=== PATIENT | female | born 1980 | race Hispanic/Latino ===

== ENCOUNTER 2018-11-28 23:28 | Emergency (ER) | payer SELFPAY ==
--- OUTSIDE RECORDS SUMMARY | 2018-11-28 23:31 | XMS REPORT ---
:1980 [facility] Address [address] [place] [address] Care Team Providers Name Role Phone Unavailable Unavailable Unavailable Payers Payer Name Policy Type Policy Number Effective Date Expiration Date Problems This patient has no known problems. Allergies, Adverse Reactions, Alerts Allergy Name Allergy Status Severity Reaction(s) Onset Inactive Treating Comments Type Date Date Clinician diphenhydramine DA Active WA 8-07 00:00: 00 lidocaine DA Active MO 3-14 00:00: 00 ketorolac DA Active SV 3-14 00:00: 00 Medications This patient has no known medications. Results Test Description Test Time Test Comments Text Results Atomic Results Result Comments UA RFLX MICR CULT IF INDICATED 2018-11-11 02:38:00 Test Item Value Reference Range Comments UA COLOR (test code=COLU) YELLOW YELLOW UA APPEARANCE (test code=APPU) CLEAR CLEAR UA GLUCOSE DIPSTICK (test code=DGLUU) NEGATIVE NEGATIVE UA BILIRUBIN DIPSTICK (test code=BILU) NEGATIVE NEGATIVE UA KETONE DIPSTICK (test code=KETU) NEGATIVE NEGATIVE UA SPECIFIC GRAVITY (test code=SGU) 1.020 1.000-1.030 UA BLOOD DIPSTICK (test code=RIRI) NEGATIVE NEGATIVE UA PH DIPSTICK (test code=JAYDE) 6.5 5.0-8.5 UA PROTEIN DIPSTICK (test code=PROU) NEGATIVE NEGATIVE UA UROBILINIOGEN DIPSTICK (test code=URO) 0.2 EU/DL <=1.0 EU/DL UA NITRITE DIPSTICK (test code=NAYELI) NEGATIVE NEGATIVE UA LEUKOCYTE ESTERASE DIPSTICK (test code=LEUU) NEGATIVE NEGATIVE UA WBC (test code=WBCU) 0-2 0-5 UA CULTURE NEEDED? (test code=UACULT) Criteria not met SOURCE: URINESPECIMEN DESCRIPTION: CMCIndication for culture: Suprapubic PainUA [id number] 02:38:00 Test Item Value Reference Range Comments UA RBC (test code=RBCU) 0-2 0-5 SOURCE: URINESPECIMEN DESCRIPTION: CMCIndication for culture: Suprapubic PainUA RFLX MICR CULT IF [id number] 02:37:00 Test Item Value Reference Range Comments UA COLOR (test code=COLU) YELLOW YELLOW UA APPEARANCE (test code=APPU) CLEAR CLEAR UA GLUCOSE DIPSTICK (test code=DGLUU) NEGATIVE NEGATIVE UA BILIRUBIN DIPSTICK (test code=BILU) NEGATIVE NEGATIVE UA KETONE DIPSTICK (test code=KETU) NEGATIVE NEGATIVE UA SPECIFIC GRAVITY (test code=SGU) 1.020 1.000-1.030 UA BLOOD DIPSTICK (test code=RIRI) NEGATIVE NEGATIVE UA PH DIPSTICK (test code=JAYDE) 6.5 5.0-8.5 UA PROTEIN DIPSTICK (test code=PROU) NEGATIVE NEGATIVE UA UROBILINIOGEN DIPSTICK (test code=URO) 0.2 EU/DL <=1.0 EU/DL UA NITRITE DIPSTICK (test code=NAYELI) NEGATIVE NEGATIVE UA LEUKOCYTE ESTERASE DIPSTICK (test code=LEUU) NEGATIVE NEGATIVE UA WBC (test code=WBCU) 0-2 0-5 UA CULTURE NEEDED? (test code=UACULT) SOURCE: URINESPECIMEN DESCRIPTION: CMCIndication for culture: Suprapubic PainUA [id number] 02:37:00 Test Item Value Reference Range Comments UA RBC (test code=RBCU) 0-2 0-5 SOURCE: URINESPECIMEN DESCRIPTION: CMCIndication for culture: Suprapubic PainUA RFLX MICR CULT IF [id number] 02:36:00 Test Item Value Reference Range Comments UA COLOR (test code=COLU) YELLOW YELLOW UA APPEARANCE (test code=APPU) CLEAR CLEAR UA GLUCOSE DIPSTICK (test code=DGLUU) NEGATIVE NEGATIVE UA BILIRUBIN DIPSTICK (test code=BILU) NEGATIVE NEGATIVE UA KETONE DIPSTICK (test code=KETU) NEGATIVE NEGATIVE UA SPECIFIC GRAVITY (test code=SGU) 1.020 1.000-1.030 UA BLOOD DIPSTICK (test code=RIRI) NEGATIVE NEGATIVE UA PH DIPSTICK (test code=JAYDE) 6.5 5.0-8.5 UA PROTEIN DIPSTICK (test code=PROU) NEGATIVE NEGATIVE UA UROBILINIOGEN DIPSTICK (test code=URO) 0.2 EU/DL <=1.0 EU/DL UA NITRITE DIPSTICK (test code=NAYELI) NEGATIVE NEGATIVE UA LEUKOCYTE ESTERASE DIPSTICK (test code=LEUU) NEGATIVE NEGATIVE UA WBC (test code=WBCU) 0-5 UA CULTURE NEEDED? (test code=UACULT) SOURCE: URINESPECIMEN DESCRIPTION: CMCIndication for culture: Suprapubic PainUA [id number] 02:36:00 Test Item Value Reference Range Comments UA RBC (test code=RBCU) 0-5 SOURCE: URINESPECIMEN DESCRIPTION: CMCIndication for culture: Suprapubic PainUA RFLX MICR CULT IF [id number] 02:36:00 Test Item Value Reference Range Comments UA COLOR (test code=COLU) YELLOW YELLOW UA APPEARANCE (test code=APPU) CLEAR CLEAR UA GLUCOSE DIPSTICK (test code=DGLUU) NEGATIVE NEGATIVE UA BILIRUBIN DIPSTICK (test code=BILU) NEGATIVE NEGATIVE UA KETONE DIPSTICK (test code=KETU) NEGATIVE NEGATIVE UA SPECIFIC GRAVITY (test code=SGU) 1.020 1.000-1.030 UA BLOOD DIPSTICK (test code=RIRI) NEGATIVE NEGATIVE UA PH DIPSTICK (test code=JAYDE) 6.5 5.0-8.5 UA PROTEIN DIPSTICK (test code=PROU) NEGATIVE NEGATIVE UA UROBILINIOGEN DIPSTICK (test code=URO) 0.2 EU/DL <=1.0 EU/DL UA NITRITE DIPSTICK (test code=NAYELI) NEGATIVE NEGATIVE UA LEUKOCYTE ESTERASE DIPSTICK (test code=LEUU) NEGATIVE NEGATIVE UA WBC (test code=WBCU) 0-5 UA CULTURE NEEDED? (test code=UACULT) SOURCE: URINESPECIMEN DESCRIPTION: CMCIndication for culture: Suprapubic PainUA [id number] 02:36:00 Test Item Value Reference Range Comments UA RBC (test code=RBCU) 0-5 SOURCE: URINESPECIMEN DESCRIPTION: CMCIndication for culture: Suprapubic Pain- CT ABD PELVIS [id number] 02:35:00 Glen: [facility] St: REG [facility] 1980 Age/S: 38/F [address] [facility] Unit #: [id number] Loc: [place] [address] Phys: Nayan Ng MD Acct: [id number] Dis Date: Status: REG ER PHONE #: [phone] Exam Date: 11/11/2018220 FAX #: [phone] Reason: Low abdominal pain, rt. flank pain CTDI: DLP: Automated exposure control, iterative reconstruction technique, and/ oradjustment of mA and/or kV according to patient's size was utilized fooptimum radiation dose reduction. EXAMS: CPT CODE: [id number] CT ABD PELVIS W/CONT 30302 EXAM: - CT ABD PELVIS W/CONT INDICATION: 38 years -old Female withLow abdominal pain, rt. flank pain TECHNIQUE: Contrast - IV contrast was given. No oral contrast was given Portal venous phase - abdomen and pelvis No delayed phase images were obtained. Reconstructions - coronal and sagittal planes Automated exposurereduction (Auto mA/Smart mA) was utilized in compliance with ACR [employer] COMPARISON: None FINDINGS: Statements: None. Thoracic: Included images of the lower chest demonstrate no abnormalities. Hepatobiliary: The liver is normal without focal lesion. Cholecystectomy clips are present. No biliary dilation. Pancreas: Normal. Spleen: Normal. Adrenals: Normal. Genitourinary: The kidneys are normal. No evidence of hydronephrosis. Evaluation of the bladder is limited, but no obvious bladder abnormality is present. Gastrointestinal: No bowel obstruction or perienteric inflammation. The appendix is normal. Vascular: No evidence of aneurysm or dissection. PAGE 1 Signed Report (CONTINUED) Glen: [facility] St: REG -- Name: BELKYSYNES [facility] : 1980 Age[facility]S: 38/F [address] [facility] [id number] Loc: [place], [place] [address] Phys: Nayan Ng MD Acct: [id number] Dis Date: Status: [facility] ER PHONE #: [phone] Exam Date: 11/11/2018220 FAX #: [phone] Reason: Low abdominal pain, rt. flank pain CTDI: DLP: Automated exposure control, iterative reconstruction technique, and/ oradjustment of mA and/or kV according to patient's size was utilized fooptimumradiation dose reduction. EXAMS: CPT CODE: [id number] CT ABD PELVIS W/CONT 10912 <Continued> Lymphatics: No enlarged lymph nodes by CT size criteria. Bones/Soft Tissues: No acute osseous findings. No ventral hernias. Peritoneum/Other: No extraluminal air. No extraluminal fluid. IMPRESSION: 1. No acute inflammatory process. No other acute abnormality. at 0235 Reported and signed by: JOYCE BRODY M.D. Facility ACR Accreditation for [place] - November 2011 CC: Nayan Ng MD; MD Eddie Jaramillo Technologist: STALIN SUTTON RT(R)(CT)(ARRT) Transcribed Date/Time/By: 11/11/2018 (0235) : By: [email or web address] Orig Print D/T: S: 11/11/2018 (0238) PAGE 2 Signed ReportHEPATIC FUNCTION [id number] 02:16:00 Test Item Value Reference Range Comments TOTAL PROTEIN (test 6.7 g/dL 6.4-8.2 code=PROT) ALBUMIN (test code=ALB) 2.9 g/dL 3.4-5.0 GLOBULIN (test code=GLOB) 3.8 gm/dL 2.3-3.5 ALBUMIN/GLOBULIN RATIO (test 0.8 1.5-2.2 code=A/G) BILIRUBIN TOTAL (test 0.1 mg/dL 0.0-1.1 code=BILT) BILIRUBIN DIRECT (test <0.1 mg/dL 0.05-0.3 code=BILD) BILIRUBIN INDIRECT (test 0.0 mg/dL 0.0-0.6 code=BILIND) SGOT/AST (test code=AST) 15 U/L 15-37 Reporting units: International Units/L SGPT/ALT (test code=ALT) 25 U/L 10-30 Reporting units: International Units/L ALKALINE PHOSPHATASE TOTAL 141 U/L 45-117 (test code=ALKP) [id number] 02:16:00 Test Item Value Reference Range Comments LIPASE (test code=LIP) 378 U/L 73-393 Reporting units: International Units/L UR HCG [id number] 02:15:00 Test Item Value Reference Range Comments UR HCG QUAL (test code=HCGQLU) NEGATIVE UPG RESULT: NEGATIVEPERFORMED BY: JENHCG LOT # : [id number] EXPIRATION DATE: HCG PROCEDURAL CONTROL VERIFIED KIT LOT # [id number]. DATE CHEMISTRY 8 [id number] 02:13:00 Test Item Value Reference Range Comments IONIZED CALCIUM (test code=CAIABG) 1.15 mmol/L 1.13-1.32 ISTAT-TCO2 VENOUS (test code=TCO2VP) 21 MMOL/L 24-30 ISTAT-HEMOGLOBIN (test code=HBP) 14.3 G/DL 12.0-16.0 ISTAT-HEMATOCRIT (test code=HCTP) 42 % 44.0-56.0 ISTAT-SODIUM (test code=NAP) 140 MMOL/L 136-145 ISTAT-POTASSIUM (test code=KP) 3.7 MMOL/L 3.5-5.1 ISTAT-CHLORIDE (test code=CLP) 106 MMOL/L 98-107 ISTAT GLUCOSE (test code=GLUP) 156 MG/DL 65-99 ISTAT-BUN (test code=BUNP) 10 MG/DL 7-18 BEDSIDE CREATININE (test code=CREATBED) 0.5 MG/DL 0.6-1.0 PROTHROMBIN [id number] 02:12:00 Test Item Value Reference Range Comments PROTHROMBIN TIME PATIENT 10.3 SECONDS 9.9-11.6 (test code=PTP) INTERNATIONAL NORMAL 1.00 0.93-1.2 Recommended Therapeutic PT RATIO (test code=INR) Ratios For Oral AnticoagualantTherapy. CONDITION INT'L NORMALIZED PT R--------- Prophylaxis of venous thrombosis 2.0 - 3.0in high risk medical or surgicalpatients, treatment of venousthrombosis, prevention of embolism. Prevention of recurrent embolism, 3.0 - 4.5or treatment of patients with mechanicalprosthetic heart valves. IS THE PATIENT ON ANY ANTICOAGULANTS? NTHROMBOPLASTIN TIME [id number] 02: 12:00 Test Item Value Reference Range Comments THROMBOPLASTIN TIME PARTIAL (test code=PTT) 26.1 SECONDS 23.0-32.0 IS THE PATIENT ON ANY ANTICOAGULANTS? NCBC W/AUTO [id number] 02:05:00 Test Item Value Reference Range Comments WHITE BLOOD CELL (test code=WBC) 15.0 K/mm3 4.8-10.8 RED BLOOD CELL (test code=RBC) 4.67 M/mm3 4.2-5.4 HEMOGLOBIN (test code=HGB) 14.1 gm/DL 12.0-16.0 HEMATOCRIT (test code=HCT) 41.8 % 34.7-43.3 MEAN CELL VOLUME (test code=MCV) 89.5 fL 81-99 MEAN CELL HGB (test code=MCH) 30.2 pg 27-31 MEAN CELL HGB CONCETRATION (test code=MCHC) 33.7 gm/dL 33-37 RED CELL DISTRIBUTION WIDTH (test code=RDW) 13.6 % 11.5-14.5 PLATELET COUNT (test code=PLT) 280 X10(3) 130-400 MEAN PLATELET VOLUME (test code=MPV) 10.0 fL 9.4-12.4 NEUTROPHIL % (test code=NT%) 82.9 % 51.5-79.7 IMMATURE GRANULOCYTE % (test code=IG%) 0.500 % 0.108-0.322 LYMPHOCYTE % (test code=LY%) 13.2 % 14-40 MONOCYTE % (test code=MO%) 2.4 % 4.0-10.2 EOSINOPHIL % (test code=EO%) 0.7 % 0-4.1 BASOPHIL % (test code=BA%) 0.3 % 0.1-0.7 NUCLEATED RBC % (test code=NRBC%) 0 % 0-0 NEUTROPHIL # (test code=NT#) 12.4 K/mm3 2.5-8.6 IMMATURE GRANULOCYTE # (test code=IG#) 0.080 K/mm3 0.0052-0.0224 LYMPHOCYTE # (test code=LY#) 2.0 K/mm3 1.1-3.6 MONOCYTE # (test code=MO#) 0.4 K/mm3 0.3-0.9 EOSINOPHIL # (test code=EO#) 0.11 # 0.0-0.4 BASOPHIL # (test code=BA#) 0.05 K/mm3 0.0-0.2 NUCLEATED RBC # (test code=NRBC#) 0.00 K/mm3 0.00-0.20 UR HCG [id number] 03:56:00 Test Item Value Reference Range Comments UR HCG QUAL (test code=HCGQLU) NEGATIVE UPG RESULT: NEGATIVEPERFORMED BY: MLMHCG LOT # : [id number] EXPIRATION DATE: 03/05/20HCG PROCEDURAL CONTROL VERIFIED KIT LOT # [id number]. DATE COMPREHENSIVE METABOLIC [id number] 03:48:00 Test Item Value Reference Range Comments SODIUM (test code=NA) 141 mmol/L 136-145 POTASSIUM (test code=K) 3.2 mmol/L 3.5-5.1 CHLORIDE (test code=CL) 109 mmol/L 98-107 CARBON DIOXIDE (test 25 mmol/L 21-32 code=CO2) GLUCOSE (test code=GLU) 177 mg/dL 65-99 BLOOD UREA NITROGEN (test 9 mg/dL 7-18 code=BUN) GLOMERULAR FILTRATION RATE 118 Reporting units: (test code=GFR) ml/min/1.73m\S\2 (Modified MDRD Formula)If age < 18 years, GFR is not applicable. KD/DOQI Clinical Practice Guidelines: Stage 1: Kidney damage w/normal or increased GFR >90Stage 2: Kidney damage w/mild decrease in GFR 60 - 89Stage 3: Moderate decrease in GFR 30 - 59Stage 4: Severe decrease in GFR 15 - 29Stage 5: Kidney failure < 15 (or dialysis) CREATININE (test code=CREAT) 0.6 mg/dL 0.6-1.0 TOTAL PROTEIN (test 6.8 g/dL 6.4-8.2 code=PROT) ALBUMIN (test code=ALB) 3.0 g/dL 3.4-5.0 GLOBULIN (test code=GLOB) 3.8 gm/dL 2.3-3.5 ALBUMIN/GLOBULIN RATIO (test 0.8 1.5-2.2 code=A/G) CALCIUM (test code=CA) 8.8 mg/dL 7.8-10.9 BILIRUBIN TOTAL (test 0.2 mg/dL 0.0-1.1 code=BILT) SGOT/AST (test code=AST) 13 U/L 15-37 Reporting units: International Units/L SGPT/ALT (test code=ALT) 23 U/L 10-30 Reporting units: International Units/L ALKALINE PHOSPHATASE TOTAL 139 U/L 45-117 (test code=ALKP) [id number] 03:48:00 Test Item Value Reference Range Comments LIPASE (test code=LIP) 359 U/L 73-393 Reporting units: International Units/L COMPREHENSIVE METABOLIC [id number] 03:44:00 Test Item Value Reference Range Comments SODIUM (test code=NA) 141 mmol/L 136-145 POTASSIUM (test code=K) 3.2 mmol/L 3.5-5.1 CHLORIDE (test code=CL) 109 mmol/L 98-107 CARBON DIOXIDE (test code=CO2) 25 mmol/L 21-32 GLUCOSE (test code=GLU) mg/dL 65-99 BLOOD UREA NITROGEN (test code=BUN) mg/dL 7-18 GLOMERULAR FILTRATION RATE (test code=GFR) CREATININE (test code=CREAT) mg/dL 0.6-1.0 TOTAL PROTEIN (test code=PROT) g/dL 6.4-8.2 ALBUMIN (test code=ALB) 3.0 g/dL 3.4-5.0 GLOBULIN (test code=GLOB) gm/dL 2.3-3.5 ALBUMIN/GLOBULIN RATIO (test code=A/G) 1.5-2.2 CALCIUM (test code=CA) 8.8 mg/dL 7.8-10.9 BILIRUBIN TOTAL (test code=BILT) mg/dL 0.0-1.1 SGOT/AST (test code=AST) U/L 15-37 SGPT/ALT (test code=ALT) U/L 10-30 ALKALINE PHOSPHATASE TOTAL (test code=ALKP) U/L 45-117 [id number] 03:44:00 Test Item Value Reference Range Comments LIPASE (test code=LIP) 359 U/L 73-393 Reporting units: International Units/L CBC W/AUTO [id number] 03:25:00 Test Item Value Reference Range Comments WHITE BLOOD CELL (test code=WBC) 15.8 K/mm3 4.8-10.8 RED BLOOD CELL (test code=RBC) 4.85 M/mm3 4.2-5.4 HEMOGLOBIN (test code=HGB) 14.8 gm/DL 12.0-16.0 HEMATOCRIT (test code=HCT) 42.8 % 34.7-43.3 MEAN CELL VOLUME (test code=MCV) 88.2 fL 81-99 MEAN CELL HGB (test code=MCH) 30.5 pg 27-31 MEAN CELL HGB CONCETRATION (test code=MCHC) 34.6 gm/dL 33-37 RED CELL DISTRIBUTION WIDTH (test code=RDW) 13.3 % 11.5-14.5 PLATELET COUNT (test code=PLT) 303 X10(3) 130-400 MEAN PLATELET VOLUME (test code=MPV) 10.1 fL 9.4-12.4 NEUTROPHIL % (test code=NT%) 65.1 % 51.5-79.7 IMMATURE GRANULOCYTE % (test code=IG%) 0.600 % 0.108-0.322 LYMPHOCYTE % (test code=LY%) 26.0 % 14-40 MONOCYTE % (test code=MO%) 6.9 % 4.0-10.2 EOSINOPHIL % (test code=EO%) 1.1 % 0-4.1 BASOPHIL % (test code=BA%) 0.3 % 0.1-0.7 NUCLEATED RBC % (test code=NRBC%) 0 % 0-0 NEUTROPHIL # (test code=NT#) 10.3 K/mm3 2.5-8.6 IMMATURE GRANULOCYTE # (test code=IG#) 0.100 K/mm3 0.0052-0.0224 LYMPHOCYTE # (test code=LY#) 4.1 K/mm3 1.1-3.6 MONOCYTE # (test code=MO#) 1.1 K/mm3 0.3-0.9 EOSINOPHIL # (test code=EO#) 0.18 # 0.0-0.4 BASOPHIL # (test code=BA#) 0.05 K/mm3 0.0-0.2 NUCLEATED RBC # (test code=NRBC#) 0.00 K/mm3 0.00-0.20 - XR TIBIA/FIBULA 2 V [id number] 02:02:00 FAX: Eduard Rodriguez MD [phone] Camps: JOEL St: REG FAX: Aliyah Marshall, ------ Name: BELKYSYNES [facility] 1980 Age/S: 38/F [address] [facility] Unit #: [id number] Loc: [place] [address] Phys : Chely Marshall MD Acct: [id number] Dis Date: Status: REG ER PHONE #: [phone] Exam Date: 09/17/2018 0153 FAX #: [phone] Reason: slip and fall to right knee EXAMS: CPT CODE: [id number] XR TIBIA/FIBULA 2 [place] RT [address] EXAM: - XRKNEE 3 V RT, - XR TIBIA/FIBULA 2 V RT HISTORY: slip and fall to right knee Location code:C3 COMPARISON: None available time of interpretation. FINDINGS: AP, oblique, and lateral view of the right knee with AP and lateral view of the right tibia and fibula is provided. There is no acute fracture or malalignment. The joint spaces are preserved. The osseous structures are intact. IMPRESSION: No acute osseous abnormality. at 0202 Reported and signed by : CRISTOFER ZEPEDA M.D. CC: MD Eddie Jaramillo; Chely Marshall MD Technologist: Ti Valle RT (R)(ARRT) Transcribed Date/Time/By: 09/17/2018 (020) :[email or web address] Orig Print D/T: S: 09/17/2018 (020) Automated exposure control, iterative reconstruction technique, and/oradjustment of mA and/or kV according to patient's size was utilizedfor optimum radiation dose reduction. PAGE 1 Signed Report- XR KNEE 3 V [id number] 02:02:00 FAX: Eduard Rodriguez MD [phone] Camps: ER St: REG FAX: Aliyah Marshall, Name: BELKYSYNES [facility] : 1980 Age/S: 38/F [address] [facility] Unit #: [id number] Loc: [place], [place] [address] Phys: Chely Marshall MD Acct: [id number] Dis Date: Status: REG ER PHONE #: [phone] Exam Date: 2018 0153 FAX #: [phone] Reason: slip and fall to right knee EXAMS: CPT CODE: [id number] XR KNEE 3 V RT 46425 EXAM: - XRKNEE 3 V RT, - XR TIBIA/FIBULA 2 V RT HISTORY: slip and fall to right knee Location code:C3 COMPARISON: None available time of interpretation. FINDINGS: AP, oblique, and lateral view of the right knee with AP and lateral view of the right tibia and fibula is provided. There is no acute fracture or malalignment. The joint spaces are preserved. The osseous structures are intact. IMPRESSION: No acute osseous abnormality. at 0202 Reported and signed by: CRISTOFRE ZEPEDA M.D. CC: MD Eddie Jaramillo; Chely Marshall MD Technologist: Ti Valle RT (R)(ARRT) Transcribed Date/Time/By: 09/17/2018 (0202) :[email or web address] Orig Print D/T: S: 09/17/2018 (0206) Automated exposure control, iterative reconstruction technique, and/oradjustment of mA and /or kV according to patient's size was utilizedfor optimum radiation dose reduction. PAGE 1 Signed Report- XR SHOULDER 1 V [id number] 09:12:00 FAX: Shahid Wong [phone] Camps: ER St: REG FAX: Eduard Rodriguez AMD [phone] FAX: Edwige Rain [phone] Name: YNES RIZVI [facility] : 1980 Age/S: 38/F [address] Unit #: [id number] Loc: [place], [place] [address] Phys: Shahid Matute MD Acct: [id number] Dis Date: Status: REG ER PHONE #: [phone] Exam Date: 09/11/2018 0854 FAX #: [phone] Reason: axillary or scapular Y view for further evaluat EXAMS: CPT CODE: [id number] XR SHOULDER 1 V RT [address]457 EXAM: - XR SHOULDER 1 V RT INDICATION: axillary or scapular Y view for further evaluation Comparison: Correlation made with images from earlier today. Findings: Right humeral head is now seen to be located overlying the glenoid fossa without dislocation. No acute fracture seen. Granular opacities are noted within the right perihilar regions suggesting possible mild central vasculature congestion. Impression: No radiographic evidence of dislocation. Asymmetric perihilar granular opacities suggestive of central congestion. at 0912 Reported and signed by: AL SAMAYOA MD CC: Shahid Matute MD; MD Eddie Jaramillo; Edwige VILLASEÑOR Technologist: JENNIE CANTOR, RT,(R) ARRTTranscribed Date/Time/By: 09/11/2018 (911) :[email or web address] Orig Print D/T: S: 09/11/2018 (914) Automated exposure control, iterative reconstruction technique, and/oradjustment of mA and/or kV according to patient's size was utilizedfor optimum radiation dose reduction. PAGE 1 Signed Report- XR ELBOW 3+V [id number] 08:14:00 FAX: Shahid Wong [phone] Camps: ER St: REG FAX: Eduard Rodriguez AMD [phone] FAX: Edwige Rain [phone] Name: YNES RIZVI [facility] : 1980 Age/S : 38/F [address] [facility] Unit #: [id number] Loc: [place], [place] [address] Phys: Shahid Matute MD Acct: [id number] Dis Date: Status: REG ER PHONE #: [phone] Exam Date: 09/11/2018732 FAX #: [phone] Reason: pain EXAMS: CPT CODE: [id number] XR ELBOW 3+V RT [address] EXAM: - XR HUMERUS 2 + V RT, - XR SHOULDER 2+V RT, - XR ELBOW 3+V RT INDICATION: Pain. Comparison: August Findings: Right shoulder: The right shoulder appear slightly inferiorly positioned within the glenoid fossa, without regina dislocation. Right upper lung is clear. No acute fracture is identified. Right humerus: The right humerus appears intact. No displaced fracture is identified. Soft tissues unremarkable. Right elbow: There is normal alignment of the bones at the right elbow. There is no fracture or dislocation seen. The fat planes are preserved. Impression: No displaced fracture seen. The right humeral head is slightly inferiorly positioned with respect to the glenoid, without definite regina dislocation. Further evaluation with axillary or scapular Y view of the shoulder is recommended toassess for subtle subluxation. at 0814 Reported and signed by: AL SAMAYOA MD CC: Shahid Matute MD; MD Eddie Jaramillo; Edwige VILLASEÑOR Technologist: JENNIE CANTOR, RT,(R) ARRT Transcribed Date/Time/By: 2018 (0814) :[email or web address] Orig Print D/T: S: 09/11/2018 (0817) Automated exposure control, iterative reconstruction technique, and /oradjustment of mA and/or kV according to patient's size was utilizedfor optimum radiation dose reduction. PAGE 1 Signed Report- XR SHOULDER 2+V [id number] 08:14:00 FAX: Shahid Wong [phone] Camps: ER St: REG FAX: Julian Eduard Morgan [facility] [phone] FAX: Austin QuirogaEdwige [phone] Name: YNES RIZVI [facility] : 1980 Age/S: 38/F [address] [facility] Unit #: [id number] Loc: [place] [address] Phys: Shahid Matute MD Acct: [id number] Dis Date: Status: REG ER PHONE #: [phone] Exam Date: 09/11 07 FAX #: [phone] Reason: pain EXAMS: CPT CODE: [id number] XR SHOULDER 2+V RT [id number] EXAM: - XR HUMERUS 2 + V RT, - XR SHOULDER 2+V RT, - XR ELBOW 3+V RT INDICATION: Pain. Comparison: August 12, 2018 Findings: Right shoulder: The right shoulder appear slightly inferiorly positioned within the glenoid fossa, without regina dislocation. Right upper lung is clear. No acute fracture is identified. Right humerus: The right humerus appears intact. No displaced fracture is identified. Soft tissues unremarkable. Right elbow: There is normal alignment of the bones at the right elbow. There is no fracture or dislocation seen. The fat planes are preserved. Impression: No displaced fracture seen. The right humeral head is slightly inferiorly positioned with respect to the glenoid, without definite regina dislocation. Further evaluation with axillary or scapular Y view of the shoulder is recommended toassess for subtle subluxation. at 0814 Reported and signed by: AL SAMAYOA MD CC: Shahid Matute MD; MD Eddie Jaramillo; Edwige VILLASEÑOR Technologist: JENNIE CANTOR, RT,(R) ARRT Transcribed Date/Time/By: 09/11/2018 (813) :[email or web address] Orig Print D/T: S: 09/11/2018 (69) Automated exposure control, iterative reconstruction technique, and/oradjustment of mA and/or kV according to patient's size was utilizedfor optimum radiation dose reduction. PAGE 1 Signed Report- XR HUMERUS 2 + V [id number] 08:14 :00 FAX: Shahid Wong [phone] Camps: ER St: REG FAX: Eduard Rodriguez [facility] [phone] FAX: Edwige Rain Name: BELKYSYNES [facility] : 1980 Age/S: 38/F [address] [facility] Unit #: [id number] Loc: [place], [place] [address] Phys : Shahid Matute MD Acct: [id number] Dis Date: Status: REG ER PHONE #: [phone] Exam Date: 09/11/2018 0733 FAX # : [phone] Reason: pain EXAMS: CPT CODE: [id number] XR HUMERUS 2 + V RT [id number] EXAM: - XR HUMERUS 2 + V RT, - XR SHOULDER 2+V RT, - XR ELBOW 3+V RT INDICATION: Pain. Comparison: August 12, 2018 Findings: Right shoulder: The right shoulder appear slightly inferiorly positioned within the glenoid fossa, without regina dislocation. Right upper lung is clear. No acute fracture is identified. Right humerus: The right humerus appears intact. No displaced fracture is identified. Soft tissues unremarkable. Right elbow: There is normal alignment of the bones at the right elbow. There is no fracture or dislocation seen. The fat planes are preserved. Impression: No displaced fracture seen. The right humeral head is slightly inferiorly positioned with respect to the glenoid, without definite regina dislocation. Further evaluation with axillary or scapular Y view of the shoulder is recommended toassess for subtle subluxation. at 0814 Reported and signed by: AL SAMAYOA MD CC: Shahid Matute MD; MD Eddie Jaramillo ; Edwige VILLASEÑOR Technologist: RT DIA,(R) ARRT Transcribed Date/Time/By: 09/11/2018 (813) :[email or web address] Orig Print D/T: S: 09/11/2018 (0817) Automated exposure control, iterative reconstruction technique, and/oradjustment of mA and/or kV according to patient's size was utilizedfor optimum radiation dose reduction. PAGE 1 Signed Report- XR SHOULDER 2+V [id number] 09:52:00 FAX: Ruben Khan NP Camps: ER St: REG FAX: Triston Craig [phone] FAX: Eduard Rodriguez MD ------ Name: YNES RIZVI [facility] : 1980 Age/S: 38/F [address] [facility] Unit #: [id number] Loc: [place], [place] [address] Phys : Triston Craig MD Acct: [id number] Dis Date: Status: REG ER PHONE #: [phone] Exam Date: 08/12/2018941 FAX # : [phone] Reason: reduction EXAMS: CPT CODE: [id number] XR SHOULDER 2+[place] [id number] - XR SHOULDER 2+V RT PROVIDED REASON FOR EXAM: reduction Comparison: Same day radiograph FINDINGS: Improved alignment of the glenohumeral relationship. Small ossific density seen along the lateral aspect of the humeral head.. IMPRESSION: Improved alignment of the right shoulder with small calcific densities lateral to the humeral head may reflect calcific tendinosis or fragments associated with a Hill- Sachs fracture. at 0939 Reported and signed by: ZOILA MCCARTY MD CC: Ruben Khan NP; Triston Craig MD; MD Eddie Jaramillo Technologist : RT HUAN(R) ARRT Transcribed Date/Time/ By: 08/12/2018(0952) :[email or web address] Orig Print D/T: S: 08/12/2018 (7226) Automated exposure control, iterative reconstruction technique, and/oradjustment of mA and/or kV according to patient's size was utilizedfor optimum radiation dose reduction. PAGE 1 Signed Report- XR SHOULDER 2+V [id number] 09:08:00 FAX: Ruben Khan NP Camps: ER St: REG FAX: Triston Craig [phone] FAX: Eduard Rodriguez MD [phone] Name: YNES RIZVI [facility] : 1980 Age/S: 38/F [address] Unit #: [id number] Loc: [place], [place] [address] Phys: Triston Craig MD Acct: [id number] Dis Date: Status: REG ER PHONE #: [phone] Exam Date: 08/12/2018 0849 FAX #: [phone] Reason: Fall EXAMS: CPT CODE: [id number] XR SHOULDER 2+[place] [id number] Dictation Location B2 RIGHT SHOULDER 2 VIEWS: HISTORY: All with pain COMMENT: Frontal radiographs of patient's right shoulder were obtained. The right humerus appears anteriorly dislocated. The study is degraded by patient's body habitus. No obvious fracture is seen. IMPRESSION: Anterior dislocation with no obvious fracture, recommend follow-up. at 0908 Reported and signed by: BARNEY NEAL MD CC : Ruben Khan PHYSICAL THERAPIST CLINIC DIRECTOR; Triston Craig MD; Eduard Nieves MD [facility] Technologist: RT HUAN(R) ARRT Transcribed Date/Time/By : 08/12/2018 (0908) :[email or web address] Orig Print D/T: S: 08/12/2018 (11) Automated exposure control, iterative reconstruction technique, and/oradjustment of mA and/or kV according to patient's size was utilizedfor optimum radiation dose reduction. PAGE 1 Signed Report
[2018-11-29] MEDS ORDERED: MORPHINE 4 MG/ML SYR ONE ×2 (00:05→02:02)
[2018-11-29] MEDS ORDERED: ONDANSETRON 4 MG/2 ML VIAL ONE (00:05)
[2018-11-29 00:08] LABS: Urine Blood 1+ (NEG); Urine Glucose NEGATIVE (NEG); Urine Protein NEGATIVE (NEG); Urine pH 7.5 (5.0-7.0)
[2018-11-29 00:19] LABS: Absolute Lymphocytes (CBC) 2.8 K/uL (0.7-4.9); Basophils % 0.7 % (0-1.3); Lymphocytes % 26.4 % (15.3-44.8); MPV 8.7 fL (7.6-11.3)
[2018-11-29 00:44] LABS: ALT/SGPT 26 U/L (12-78); AST/SGOT 23 U/L (15-37); Albumin 3.1 g/dL (3.4-5.0); Alkaline Phosphatase 133 U/L (45-117); BUN Blood Urea Nitrogen 11 mg/dL (7-18); Bicarbonate 30 mmol/L (21-32); Bilirubin Direct < 0.1 mg/dL (0-0.2); Bilirubin Total 0.2 mg/dL (0.2-1.0); Glucose Level 113 mg/dL (74-106); Lipase 382 U/L (73-393); Potassium 3.3 mmol/L (3.5-5.1); Protein, Total 6.6 g/dL (6.4-8.2); Sodium Level 145 mmol/L (136-145)
--- NOTE | 2018-11-29 02:47 | ER ---
Nurse's Notes [facility] Name: Jaky Gardiner Age: 38 yrs Sex: Female : 1980 Arrival Date: 11/28/2018 Time: 23:34 Bed 8 Private MD: Diagnosis: Unspecified ovarian cysts Presentation: 11/28 23:46 Presenting complaint: Patient states: Patient reports she started having abdominal pain ea around lunch time. reports the pain is in her lower abdomen and radiates to the back. Denies urinary frequency, pr burning. Rates pain 10 out of 10. Transition of care: patient was not received from another setting of care. Onset of symptoms was November 28, 2018. Risk Assessment: Do you want to hurt yourself or someone else? Patient reports no desire to harm self or others. Initial Sepsis Screen: Does the patient meet any 2 criteria? No. Patient's initial sepsis screen is negative. Does the patient have a suspected source of infection? No. Patient's initial sepsis screen is negative. Care prior to arrival: None. 23:46 Method Of Arrival: Ambulatory ea 23:46 Acuity: TIFFANIE 3 ea STOREPERSON: 23:47 LMP 11/28/2018 ea Historical: - Allergies: 23:49 Toradol; ea 23:49 Benadryl; ea 23:49 Lidocaine; ea - Home Meds: 23:49 None [Active]; ea - PMHx: 23:49 None; ea - PSHx: 23:49 ; Cholecystectomy; ea - Immunization history:: Adult Immunizations up to date. - Social history:: Smoking status: Patient uses tobacco products, denies chronic smoking, but will smoke occasionally. - Ebola Screening: : No symptoms or risks identified at this time. Screenin:47 Abuse screen: Denies threats or abuse. Nutritional screening: No deficits noted. ea Tuberculosis screening: No symptoms or risk factors identified. Fall Risk None identified. Assessment: 23:47 General: Appears in no apparent distress. uncomfortable, well groomed, well nourished, jd3 Behavior is calm, cooperative, appropriate for age. Pain: Complains of pain in right lower quadrant Pain radiates to low back area Quality of pain is described as pressure, radiating, sharp. Neuro: Level of Consciousness is awake, alert, obeys commands, Oriented to person, place, time, situation. Cardiovascular: Denies chest pain, Capillary refill < 3 seconds Patient's skin is warm and dry. Respiratory: Airway is patent Respiratory effort is even, unlabored, Respiratory pattern is regular, symmetrical, Denies cough, shortness of breath. GI: Abdomen is round non-distended, Bowel sounds present X 4 quads. Abd is soft X 4 quads Abdomen is tender to palpation in right lower quadrant Reports lower abdominal pain, nausea, Patient currently denies constipation, diarrhea, vomiting. : Denies burning with urination, discharge, urinary frequency. EENT: No signs and/or symptoms were reported regarding the EENT system. Derm: Skin is intact, Skin is dry, Skin is normal, Skin temperature is warm. Musculoskeletal: Circulation, motion, and sensation intact. Range of motion: intact in all extremities. 11/29 00:51 Reassessment: Patient appears in no apparent distress at this time. Patient and/or jd3 family updated on plan of care and expected duration. Pain level reassessed. Patient is alert, oriented x 3, equal unlabored respirations, skin warm/dry/pink. awaiting CT scan. 01:45 Reassessment: Patient appears in no apparent distress at this time. Patient and/or jd3 family updated on plan of care and expected duration. Pain level reassessed. Patient is alert, oriented x 3, equal unlabored respirations, skin warm/dry/pink. 02:51 Reassessment: Patient appears in no apparent distress at this time. Patient and/or jd3 family updated on plan of care and expected duration. Pain level reassessed. Patient is alert, oriented x 3, equal unlabored respirations, skin warm/dry/pink. Vital Signs: 11/28 23:47 BP 153 / 105; Pulse 87; Resp 18; Temp 99.5; Pulse Ox 98% on R/A; Weight 111.13 kg; ea Height 5 ft. 2 in. (157.48 cm); Pain 01/13; 11/29 00:16 BP 141 / 81; Pulse 75; Resp 18; Pulse Ox 98% ; ea 00:46 BP 143 / 89; Pulse 86; Resp 17 S; Pulse Ox 99% on R/A; jd3 02:09 Pulse 86; Resp 19 S; Pulse Ox 99% on R/A; jd3 02:51 BP 140 / 84; Pulse 84; Resp 17 S; Pulse Ox 97% on R/A; jd3 11/28 23:47 Body Mass Index 44.81 (111.13 kg, 157.48 cm) ED Course: 11/28 23:34 Patient arrived in ED. es 23:39 Jer Arellano RN is Primary Nurse. jd3 23:41 Ilan Osborn NP is PHCP. pm1 23:41 Franki Kennedy MD is Attending Physician. pm1 23:47 Triage completed. ea 23:48 Arm band placed on right wrist. Patient placed in an exam room, on a stretcher, on ea pulse oximetry. 23:48 Patient has correct armband on for positive identification. Bed in low position. Call ea light in reach. Side rails up X2. 11/29 00:01 Inserted saline lock: 20 gauge in right antecubital area, using aseptic technique. mg2 Blood collected. 02:17 CT Abd/Pelvis - IV Contrast Only In Process Unspecified. EDMS 02:58 No provider procedures requiring assistance completed. IV discontinued, intact, jd3 bleeding controlled, No redness/swelling at site. Pressure dressing applied. Administered Medications: 00:10 Drug: morphine 4 mg {Note: RASS 0.} Route: IVP; Site: right antecubital; ea 01:10 Follow up: Response: No adverse reaction; RASS: Restless (+1) jd3 00:10 Drug: Zofran 4 mg Route: IVP; Site: right antecubital; ea 01:10 Follow up: Response: No adverse reaction jd3 02:08 Drug: morphine 4 mg {Note: RASS score of 1..} Route: IVP; Site: right antecubital; jd3 02:50 Follow up: Response: No adverse reaction jd3 Outcome: 02:46 Discharge ordered by . pm1 02:58 Discharged to home ambulatory, with family. jd3 02:58 Condition: stable 02:58 Discharge instructions given to patient, Instructed on discharge instructions, follow up and referral plans. medication usage, Demonstrated understanding of instructions, follow-up care, medications, Prescriptions given X 1. 03:00 Patient left the ED. jd3 Signatures: Dispatcher [employer] EDSD Gladys Dyer Patrick, NP NUISANCE WILDLIFE TRAPPER pm1 Janna Mckeon RN RN ea Davies, Jonathon, RN RN jd3 John Redmond, RN RN mg2 Corrections: (The following items were deleted from the chart) 02:59 02:51 Pulse 84bpm; Resp 17bpm; Spontaneous; Pulse Ox 97% RA; jd3 jd3
--- NOTE | 2018-11-29 02:48 | EDPHYS ---
Physician Documentation [facility] Name: Jaky Gardiner Age: 38 yrs Sex: Female : 1980 Arrival Date: 11/28/2018 Time: 23:34 Bed 8 Private MD: ED Physician Franki Kennedy HPI: 11/29 00:18 This 38 yrs old Female presents to ER via Ambulatory with complaints of pm1 Abdominal pain. 00:18 The patient presents with abdominal pain right lower quadrant. Onset: The pm1 symptoms/episode began/occurred yesterday, at 12:00. The symptoms radiate to the right flank. Associated signs and symptoms: Pertinent positives: nausea, Pertinent negatives: chest pain, constipation, diarrhea, dysuria, fever, shortness of breath, vomiting. The symptoms are described as sharp. Modifying factors: The symptoms are alleviated by nothing, the symptoms are aggravated by nothing. Severity of pain: in the emergency department the pain is actually worse. The patient has not experienced similar symptoms in the past. The patient has not recently seen a physician. DOPE EDGER: 11/28 23:47 LMP 11/28/2018 ea Historical: - Allergies: 23:49 Toradol; ea 23:49 Benadryl; ea 23:49 Lidocaine; ea - Home Meds: 23:49 None [Active]; ea - PMHx: 23:49 None; ea - PSHx: 23:49 ; Cholecystectomy; ea - Immunization history:: Adult Immunizations up to date. - Social history:: Smoking status: Patient uses tobacco products, denies chronic smoking, but will smoke occasionally. - Ebola Screening: : No symptoms or risks identified at this time. ROS: 11/29 00:18 Constitutional: Negative for fever, chills, and weight loss, Eyes: Negative for injury, pm1 pain, redness, and discharge, ENT: Negative for injury, pain, and discharge, Neck: Negative for injury, pain, and swelling, Cardiovascular: Negative for chest pain, palpitations, and edema, Respiratory: Negative for shortness of breath, cough, wheezing, and pleuritic chest pain. : Negative for injury, bleeding, discharge, and swelling, MS/Extremity: Negative for injury and deformity, Skin: Negative for injury, rash, and discoloration, Neuro: Negative for headache, weakness, numbness, tingling, and seizure. Abdomen/GI: Positive for abdominal pain, nausea, Negative for vomiting, diarrhea, constipation. Back: Positive for flank pain, on the right. Exam: 00:18 Constitutional: This is a well developed, well nourished patient who is awake, alert, pm1 and in no acute distress. Head/Face: Normocephalic, atraumatic. Neck: Trachea midline, no thyromegaly or masses palpated, and no cervical lymphadenopathy. Supple, full range of motion without nuchal rigidity, or vertebral point tenderness. No Meningismus. Chest/axilla: Normal chest wall appearance and motion. Nontender with no deformity. No lesions are appreciated. Cardiovascular: Regular rate and rhythm with a normal S1 and S2. No gallops, murmurs, or rubs. Normal PMI, no JVD. No pulse deficits. Respiratory: Lungs have equal breath sounds bilaterally, clear to auscultation and percussion. No rales, rhonchi or wheezes noted. No increased work of breathing, no retractions or nasal flaring. 00:18 Back: No spinal tenderness. No costovertebral tenderness. Full range of motion. Skin: Warm, dry with normal turgor. Normal color with no rashes, no lesions, and no evidence of cellulitis. MS/ Extremity: Pulses equal, no cyanosis. Neurovascular intact. Full, normal range of motion. 00:18 Abdomen/GI: Inspection: abdomen appears normal, Bowel sounds: normal, Palpation: soft, mild abdominal tenderness, in the right lower quadrant, mass, is not appreciated, rebound tenderness, is not appreciated. 00:18 Neuro: Orientation: is normal, Motor: is normal, moves all fours, Sensation: is normal, no obvious gross deficits, Gait: is steady, at a normal pace, without difficulty. Vital Signs: 11/28 23:47 BP 153 / 105; Pulse 87; Resp 18; Temp 99.5; Pulse Ox 98% on R/A; Weight 111.13 kg; ea Height 5 ft. 2 in. (157.48 cm); Pain 01/13; 11/29 00:16 BP 141 / 81; Pulse 75; Resp 18; Pulse Ox 98% ; ea 00:46 BP 143 / 89; Pulse 86; Resp 17 S; Pulse Ox 99% on R/A; jd3 02:09 Pulse 86; Resp 19 S; Pulse Ox 99% on R/A; jd3 02:51 BP 140 / 84; Pulse 84; Resp 17 S; Pulse Ox 97% on R/A; jd3 11/28 23:47 Body Mass Index 44.81 (111.13 kg, 157.48 cm) ea MDM: 11/28 23:41 Patient medically screened. pm1 11/29 00:20 Data reviewed: vital signs. Data interpreted: Pulse oximetry: on room air is 98 %. pm1 Interpretation: normal. 02:45 Counseling: I had a detailed discussion with the patient and/or guardian regarding: the pm1 historical points, exam findings, and any diagnostic results supporting the discharge/admit diagnosis, lab results, radiology results, the need for outpatient follow up, for definitive care, an OB/Gyne specialist, to return to the emergency department if symptoms worsen or persist or if there are any questions or concerns that arise at home. 11/28 23:48 Order name: Urine Dipstick--Ancillary (enter results) [facility] 11/28 23:48 Order name: Urine --Ancillary (enter results) [facility] 11/29 00:01 Order name: Basic Metabolic Panel; Complete Time: 00:52 pm11/29 00:01 Order name: CBC with Diff; Complete Time: 00:38 pm11/29 00:01 Order name: Creatinine for Radiology pm1 11/29 00:01 Order name: Hepatic Function; Complete Time: 00:52 pm11/29 00:01 Order name: Lipase; Complete Time: 00:52 pm11/29 00:01 Order name: IV Saline Lock; Complete Time: 00:03 pm11/29 00:01 Order name: Labs collected and sent; Complete Time: 00:16 pm11/29 00:01 Order name: CT Abd/Pelvis - IV Contrast Only pm1 Administered Medications: 00:10 Drug: morphine 4 mg {Note: RASS 0.} Route: IVP; Site: right antecubital; ea 01:10 Follow up: Response: No adverse reaction; RASS: Restless (+1) jd3 00:10 Drug: Zofran 4 mg Route: IVP; Site: right antecubital; ea 01:10 Follow up: Response: No adverse reaction jd3 02:08 Drug: morphine 4 mg {Note: RASS score of 1..} Route: IVP; Site: right antecubital; jd3 02:50 Follow up: Response: No adverse reaction jd3 Disposition: 03:08 Co-signature as Attending Physician, Franki Kennedy MD. [email or web address] Disposition: 11/29/18 02:46 Discharged to Home. Impression: Unspecified ovarian cysts. - Condition is Stable. - Discharge Instructions: Ovarian Cyst. - Prescriptions for Tylenol- Codeine #3 300-30 mg Oral Tablet - take 2 tablets by ORAL route every 6 hours As needed; 20 tablet. - Medication Reconciliation Form, Thank You Letter, Antibiotic Education, Prescription Opioid Use form. - Follow up: Emergency Department; When: As needed; Reason: Worsening of condition. Follow up: Private Physician; When: 2 - 3 days; Reason: Recheck today's complaints, Continuance of care, Re-evaluation by your physician. - Problem is new. - Symptoms have improved. Signatures: Dispatcher [employer] EDMS Franki Kennedy MD MD pkIlan Thomas, BONE DRIER OPERATOR BONE DRIER OPERATOR pm1 Janna Mckeon RN RN Jer Saeed RN RN jd3 Corrections: (The following items were deleted from the chart) 03:00 02:46 11/29/2018 02:46 Discharged to Home. Impression: Unspecified ovarian cysts. jd3 Condition is Stable. Forms are Medication Reconciliation Form, Thank You Letter, Antibiotic Education, Prescription Opioid Use. Follow up: Emergency Department; When: As needed; Reason: Worsening of condition. Follow up: Private Physician; When: 2 - 3 days; Reason: Recheck today's complaints, Continuance of care, Re-evaluation by your physician. Problem is new. Symptoms have improved. pm1
--- NOTE | 2018-11-29 09:21 | RAD REPORT ---
EXAM DESCRIPTION: CT Abdomen and Pelvis With Intravenous Contrast CLINICAL HISTORY: The patient is 38 years old and is Female; RLQ PAIN TECHNIQUE: Axial computed tomography images of the abdomen and pelvis with intravenous contrast. S agittal and coronal reformatted images were created and reviewed. This CT exam was performed using one or more of the following dose reduction techniques: automated exposure control, adjustment of t he mA and/or kV according to patient size, and/or use of iterative reconstruction technique. COMPARISON: CT abdomen and pelvis dated July 21, 2013 (report only). FINDINGS: LUNG BASES: Unremarkable. No mass. No consolidation. ABDOMEN: LIVER: Diffuse hepatic steatosis. Hepatomegaly measuring 21.5 cm. GALLBLADDER AND BILE DUCTS: Prior cholecystectomy. No ductal dilation. PANCREAS: Unremarkable. No mass. No ductal dilation. SPLEEN: Unremarkable. No splenomegaly. ADRENALS: Unremarkable. No mass. KIDNEYS AND URETERS: Unremarkable. No solid mass. No hydronephrosis. STOMACH AND BOWEL: Unremarkable. No obstruction. No mucosal thickening. PELVIS: APPENDIX: The appendix is seen and is within normal limits. BLADDER: Small amount of gas in the urinary bladder. The bladder is decompressed. REPRODUCTIVE: 2.3 cm right ovarian cyst. ABDOMEN and PELVIS: INTRAPERITONEAL SPACE: Unremarkable. No free air. No significant fluid collection. BONES/JOINTS: No acute fracture. No dislocation. SOFT TISSUES: Small fat-containing umbilical hernia. VASCULATURE: Unremarkable. No abdominal aortic aneurysm. LYMPH NODES: Unremarkable. No enlarged lymph nodes. IMPRESSION: 1. No intra-abdominal or pelvic abnormality. 2. 2.3 cm right ovarian cyst. No follow-up imaging is recommended. Reference: US recommendations based on Radiology 2010 Sep;256(3):943-54; CT/MR recommendations based on J Am Danyell Radiol 2013;10:675-681. 3. Small amount of gas in the urinary bladder. Correlate with urinalysis. 4. Hepatomegaly and hepatic steatosis. Prior cholecystectomy. Electronically signed by: Dom Knox DO 11/29/2018 2:40 AM CDT Due to temporary technical issues with the PACS/Fluency reporting system, reports are being signed by the in house radiologist as a courtesy to ensure prompt reporting. The interpreting radiologist is f ully responsible for the content of the report.
== END 2018-11-29 03:00 | disposition home or self-care (01) ==
LOC: ER 23:28
DX: N83.209 Unspecified ovarian cyst, unspecified side (principal); Z72.0 Tobacco use; Z88.5 Allergy status to narcotic agent; Z88.6 Allergy status to analgesic agent; Z88.8 Allergy status to other drugs, medicaments and biological substances
CPT/HCPCS: 36415; 74177; 80048; 80076; 81003; 81025; 83690; 85025; 96374; 96375; 99284; J2405; Q9967